=== PATIENT | female | born 1985 | race Caucasian/White ===

== ENCOUNTER → 2021-01-23 10:48 | Outpatient (CLI) | payer OTHER, SELFPAY ==
[2021-01-23 12:27] LABS: Final Volume 0.5 mL; Semen 30 min. Liquification? Yes
== END ==
PROVIDERS: PCP Family Medicine; Referring Provider Specialist; Visit Provider Specialist
DX: Z31.69 Encounter for other general counseling and advice on procreation (principal)
CPT/HCPCS: 58323

== ENCOUNTER → 2021-02-18 07:38 | Outpatient (CLI) | payer OTHER, SELFPAY ==
[2021-02-18 09:09] LABS: Semen 30 min. Liquification? Yes
[2021-02-18 09:10] LABS: Final Volume 0.5 mL; Initial Volume 2.5 mL
== END ==
PROVIDERS: PCP Family Medicine; Referring Provider Obstetrics & Gynecology; Visit Provider Obstetrics & Gynecology
DX: N97.0 Female infertility associated with anovulation (principal)
CPT/HCPCS: 58323

== ENCOUNTER → 2021-03-20 13:45 | Outpatient (CLI) | payer OTHER, SELFPAY | PROVIDERS: PCP Family Medicine; Visit Provider Physician Assistant | DX: J02.9 Acute pharyngitis, unspecified (principal) | CPT/HCPCS: 87070 ==

== ENCOUNTER → 2021-07-04 16:32 | Outpatient (CLI) | payer OTHER, SELFPAY ==
[2021-07-04 17:27] LABS: Add Manual Diff / Slide Review NO; Basophils Absolute Auto 100 /uL (0-100); Basophils Percent Auto 0.9 % (0-2); Eosinophils Absolute Auto 100 /uL (0-450); Eosinophils Percent Auto 0.8 % (2-4); Hematocrit 36.6 % (36-46); Hemoglobin 12.5 g/dL (12.0-16.0); Lymphocytes Absolute Auto 2300 /uL (1100-4500); Mean Corpuscular HGB Conc 34.3 % (30-36); Mean Corpuscular Hemoglobin 31.4 PG (26-34); Mean Corpuscular Volume 91.6 fL (80-100); Monocytes Absolute Auto 500 /uL (0-900); Monocytes Percent Auto 5.9 % (3-14); Neutrophils Absolute Auto 5600 /uL (1500-7000); Neutrophils Percent Auto 65.4 % (50-75); Platelet Count 252 X10^3/uL (150-400); Red Blood Cell Count 3.99 X10^6/uL (4.0-5.2); Red Cell Distribution Width 12.3 % (11.6-14.8); White Blood Cell Count 8.6 X10^3/uL (4.5-11.0)
[2021-07-04 17:41] LABS: Appearance Urine UA CLEAR; Bilirubin Urine UA NEGATIVE (NEGATIVE); Color Urine UA YELLOW; Glucose Urine UA NEGATIVE (Negative); Ketones Urine UA NEGATIVE (NEGATIVE); Leukocyte Esterase Urine UA TRACE (NEGATIVE); Nitrite Urine UA NEGATIVE (Negative); Occult Blood Urine UA NEGATIVE (Negative); Protein Urine UA NEGATIVE (Negative); Urobilinogen Urine UA 0.2 E.U./dL (0.2)
[2021-07-04 17:55] LABS: Bacteria Urine Few (2-10); Mucus Urine 1+ (Negative); RBC Urine None Seen (0-5/HPF); Squamous Epithelial Cell Urine 1-5 /HPF (0-5/HPF); WBC Urine 1-5/HPF (0-5/HPF)
[2021-07-05 05:17] LABS: RPR Screen Non Reactive (Non Reactive)
[2021-07-05 11:46] LABS: Varicella IgG Antibody 2496 index (Immune >165)
[2021-07-06 17:09] LABS: Hepatitis B Surface Antigen NEGATIVE s/c (NEGATIVE)
[2021-07-06 17:27] LABS: HIV 1 & 2 Ab/Ag 4th Gen Combo NEGATIVE (NEGATIVE); Hep C Virus Ab w/Reflex Quant NEGATIVE s/c (NEGATIVE)
== END ==
PROVIDERS: PCP Family Medicine; Referring Provider Obstetrics & Gynecology; Visit Provider Obstetrics & Gynecology
DX: O09.511 Supervision of elderly primigravida, first trimester (principal)
CPT/HCPCS: 36415; 80055; 81003; 81015; 81420; 86787; 86803; 86850; 86900; 86901; 87086; 87389

== ENCOUNTER → 2021-07-25 16:52 | Outpatient (CLI) | payer OTHER, SELFPAY ==
[2021-07-25 17:30] LABS: COVID19 -Nasal RAPID Negative (Negative)
== END ==
PROVIDERS: PCP Family Medicine; Referring Provider Obstetrics & Gynecology; Visit Provider Obstetrics & Gynecology
DX: Z01.812 Encounter for preprocedural laboratory examination (principal); Z20.822 Contact with and (suspected) exposure to COVID-19
CPT/HCPCS: 87635

== ENCOUNTER 2021-07-26 12:28 | Day surgery (SDC) | payer OTHER, SELFPAY ==
--- NOTE | 2021-07-26 | PATH_ITS ---
[facility] Accession Number: [id number] . 01 Material submitted: . product of conception - PRODUCTS OF CONCEPTION . 02 Diagnosis: Products of Conception: Products of conception identified. MRV 07/28/2021 1116 Local . 02 Electronically signed: . Diana Montez MD, Pathologist NPI- [id number] . 01 Gross description: . The specimen is received in formalin, labeled products of conception and consists multiple dow-pink fragments of soft tissue measuring 6.0 x 6.0 x 2.5 cm in aggregate. Chorionic villi are identified. No parts are identified. Orthopedic Nurse sections are submitted in cassettes A1-A2. ([id number]) /MRV 07/27/2021 1109 Local . 02 Pathologist provided ICD-10: O02.1 . 02 CPT . 439319 Performed at: 01 [facility] [address] [id number] MD Hugo Gutierrez MD Phone: [phone] Performed at: [facility] [address] [place], [place] [id number] MD Vero Brown MD Phone: [phone]
--- NOTE | 2021-07-26 09:45 | PM.HP.1 ---
History of Present Illness History of Present Illness Date Patient Seen: 07/26/21 Chief complaint: SUCTION D&C Narrative: Patient is a 35-year-old 3 para 1 with a missed at 8 weeks gestation Patient History Medical History (Updated 06/20/21 @ 08:39 by Candi Betancur MD) Abnormal Pap smear of cervix (~2005) Acne (~1996) Chicken pox (~1989) Frequent UTI (~2004) Infertility Scoliosis (~1983) Surgical History (Updated 06/16/21 @ 15:26 by Yessenia Saldivar RN) Anesthesia [place] teeth removed (~1999) Family & Social History Family History (Updated 06/16/21 @ 15:33 by Yessenia Saldivar RN) Father Diabetes mellitus Hypertension Hyperlipidemia Smoker Alcohol use Grandfather Parkinson's disease Grandmother Stroke Grandfather Stroke Hyperlipidemia Hypertension Grandmother Diabetes mellitus Congestive heart failure Mother S/P total hysterectomy Benign uterine neoplasm H/O bilateral hip replacements Pituitary tumor Social History: household members spouse,children lives independently Yes caregiver/support person No Tobacco & Substance use: Smoking Status Never smoker alcohol intake former Meds Home Medications and Allergies Home Medications Medication Instructions Recorded Confirmed Type prenat.vits,alison,[id number] 1 tab PO DAILY 12/22/20 07/25/21 History ondansetron 4 mg disintegrating 4 mg PO Q6H PRN #20 tab 05/20/21 07/25/21 Rx tablet Allergies Allergy/AdvReac Type Severity Reaction Status Date / Time Sulfa (Sulfonamide Allergy Mild Full Body Verified 07/26/21 12:42 Antibiotics) Rash [SULFA (SULFONAMIDE ANTIBIOTICS)] acetaminophen AdvReac Intermediate Makes her Verified 07/26/21 12:42 [From Tylenol-Codeine #3] overstimulated, very hyperactive. codeine AdvReac Intermediate Makes her Verified 07/26/21 12:42 [From Tylenol-Codeine #3] overstimulated, very hyperactive. Exam Narrative Exam Narrative: HEENT: No thyromegaly, no anterior cervical or supraclavicular lymphadenopathy. Lungs:Clear to auscultation bilaterally, no wheezes. Cardiovascular: Regular rate and rhythm, no murmurs, rubs, or gallops. Abdomen: No scars. No hepatosplenomegaly. No masses palpable. External genitalia: Normal Vagina: Normal Cervix: Normal, parous Bimanual exam: 8 Week size anteverted uterus. Mobile. Assessment & Plan Assessment & Plan narrative: Assessment: 35-year-old 3 para 1 with a missed at 8 weeks gestation Plan: Suction D&C The risks, benefits, and alternatives to the procedure were explained to the patient. The risks including bleeding, infection, and uterine perforation. She understands these risks and agrees to proceed. A full par Q was held and consent form was signed. COVID-19 COVID-19 status: Negative Result date/Date tested (Pos, Neg/Pending): 07/25/21 Time Spent With Patient Time with patient: less than 30 minutes Critical Care time: I spent a total of [] minutes of critical care time on this patient's care today; this time is exclusive of procedural time.
--- NOTE | 2021-07-26 09:47 | PM.PREOP ---
Pre-operative Note COVID-19 COVID-19 status: Negative Result date/Date tested (Pos, Neg/Pending): 07/25/21 Interval Note History & Physical reviewed/Exam performed by Physician: Yes Changes to H&P: No H&P completed within 30 days and has changed as indicated here:: 07/26/21
[2021-07-26 12:44] VITALS: BP 121/80; PULSE 100; RESP 16; TEMP 37.1; O2SAT 97; BMI 25.4
[2021-07-26] MEDS: LACTATED RINGERS 1,000 ML 100 ML IV (12:54)
--- NOTE | 2021-07-26 13:15 | SUR.OPER ---
Lithotomy on padded OR bed, head on pillow, arms secured on padded arm boards at <90 degrees abduction. Legs secured in padded yellow fins stirrups.
[2021-07-26] MEDS: ACETAMINOPHEN IV 1,000 MG/100 ML VIAL 400 MG IV (13:41)
[2021-07-26 14:01] VITALS: BP 101/58; PULSE 94; RESP 21; TEMP 37; O2SAT 98
[2021-07-26 14:06] VITALS: BP 114/69; PULSE 88; RESP 14; O2SAT 97
[2021-07-26 14:11] VITALS: BP 115/73; PULSE 94; RESP 14; O2SAT 98
[2021-07-26 14:22] VITALS: BP 98/67; PULSE 60; RESP 16; TEMP 36.3; O2SAT 100
--- NOTE | 2021-08-02 05:49 | PM.GYNOP.1 ---
Operative Date/Time/Diagnoses Date of procedure: 07/26/21 Time of procedure: 13:30 Pre-op diagnosis: Missed at 8 weeks Post-op diagnosis: same Procedure & Clinicians Procedure: Procedures Operation Date: 07/26/21 13:30 Actual Procedure Side Surgeon darlyn Betancur MD Indications: Missed at 8 weeks Surgeon: Candi Betancur Anesthesia Type: General (LMA) Operative Notes Findings: 8 week size anteverted uterus. Large amount of products conception Closure Type: not applicable Specimen(s): products of conception Estimated blood loss (mL): 100 Blood products transfused: none Procedure in detail: After informed consent was obtained, the patient was taken to the operating room where she was placed in the dorsal supine position. After adequate LMA general anesthesia was achieved, she was placed in the dorsal lithotomy position, and prepped and draped in the usual sterile fashion. A time-out was performed. A bivalve speculum was placed into the vagina and the anterior lip of the cervix was grasped with a single-tooth tenaculum. Cervical os was sequentially dilated to the # 9 Hegar dilator. The # 8 curved plastic curette passed easily into the endometrial cavity. Several passes with suction revealed a large amount of fluid and placenta. Several more passes with suction revealed tissue. The suction curette was removed. Gentle sharp curettage was performed yielding minimal amount of tissue. Several more passes with suction revealed blood only. Suction curette was removed from the uterus. Single-tooth tenaculum was removed from the anterior lip of the cervix. The bivalve speculum was removed from the vagina. Sponge, lap, and instrument counts were correct x2. The patient tolerated the procedure well, and was taken to PACU in stable condition. Complications: none Post-operative Condition: stable Disposition: PACU Plan for aftercare: Home after recovery
== END 2021-07-26 14:50 | disposition home or self-care (01) ==
PROVIDERS: PCP Family Medicine; Referring Provider Obstetrics & Gynecology; Visit Provider Obstetrics & Gynecology
PROC: (CPT 58120; principal; 2021-07-26 13:30)
DX: O02.1 Missed abortion (principal); Z3A.08 8 weeks gestation of pregnancy
CPT/HCPCS: 59820; J0131; J1100; J1885; J2250; J2405; J2704; J3010

== ENCOUNTER → 2022-02-07 14:11 | Outpatient (CLI) | payer OTHER, SELFPAY ==
[2022-02-07 15:40] LABS: HCG Quantitative /Beta subunit 385.2 mIU/mL
== END ==
PROVIDERS: PCP Family Medicine; Referring Provider Obstetrics & Gynecology; Visit Provider Obstetrics & Gynecology
DX: O20.9 Hemorrhage in early pregnancy, unspecified (principal)
CPT/HCPCS: 36415; 84702

== ENCOUNTER → 2022-02-28 10:42 | Outpatient (CLI) | payer OTHER, SELFPAY ==
[2022-02-28 12:15] LABS: Follicle Stimulating Hormone 5.44 mIU/mL
[2022-02-28 13:01] LABS: Free T4, Direct Thyroxine 0.91 ng/dL (0.78-2.19)
[2022-02-28 13:14] LABS: Thyroid Stimulating Hormone 1.79 uIU/mL (0.47-4.68)
[2022-03-02 13:37] LABS: ANA Screen, IFA Negative (.)
[2022-03-02 14:54] LABS: Dilute Russell Viper Venom 39.7 sec (0.0-47.0); Lupus Reflex Interpretation Comment: (.); PTT-LA 36.6 sec (0.0-51.9)
[2022-03-02 17:36] LABS: Cardiolipin Ab IgG <9 GPL U/mL (0-14); Cardiolipin Ab IgM 12 MPL U/mL (0-12)
[2022-03-04 09:49] LABS: Anti Mullerian Hormone 1.83 ng/mL (.)
[2022-03-05 22:47] LABS: B2-Glycoprotein I IgA AB < 9 (0-25); B2-Glycoprotein I IgG AB < 9 (0-20); B2-Glycoprotein I IgM AB < 9 (0-32); Cardiolipin Ab IgA < 9 APL U/mL (0-11); Cardiolipin Ab IgG < 9 GPL U/mL (0-14); Cardiolipin Ab IgM < 9 MPL U/mL (0-12); Lupus Reflex Interpretation Comment: (.); PTT-LA 38.8 sec (0.0-51.9)
== END ==
PROVIDERS: PCP Family Medicine; Referring Provider Obstetrics & Gynecology; Visit Provider Obstetrics & Gynecology
DX: N96 Recurrent pregnancy loss (principal)
CPT/HCPCS: 36415; 82397; 83001; 84439; 84443; 85598; 85613; 85732; 86038; 86146; 86147

== ENCOUNTER 2022-02-28 11:13 | Emergency (ER) | payer OTHER, SELFPAY ==
[2022-02-28 11:20] VITALS: BP 90/63; PULSE 71; RESP 16; TEMP 36.9; O2SAT 99; BMI 24.1
--- NOTE | 2022-02-28 12:09 | ED_ITS ---
HPI - Syncope <Alvaro Moya PA-C - Last Filed: 02/28/22 12:18> General Chief Complaint: Syncope Stated Complaint: Passed out during lab draw, low bp Time Seen by Provider: 02/28/22 12:07 History of Present Illness HPI narrative: The patient is a 36-year-old female who presents to the ED after passing out from a lab draw earlier. She states that while the mathematical technician was taking blood she became lightheaded and passed out and her blood pressure and pulse were f ound to be low and she took some time to recuperate. Presenting to the ED patient is asymptomatic having no complaints she denies any pain discomfort dizziness nausea vomiting diarrhea. She has had previous history of vasovagal syncope from previous doctor's visits. She denies any recent head trauma or any new medications. Related Data Home Medications Medication Instructions Recorded Confirmed prenat.vits,alison,[id number] 1 tab PO DAILY 12/22/20 07/25/21 Previous Rx's Medication Instructions Recorded tramadol 50 mg tablet 50 mg PO Q4H PRN pain #10 tabs 07/26/21 progesterone micronized 200 mg 200 mg PO DAILY #30 caps 12/20/21 capsule (Prometrium) Allergies Allergy/AdvReac Type Severity Reaction Status Date / Time Sulfa (Sulfonamide Allergy Mild Full Body Verified 07/26/21 12:42 Antibiotics) Rash [SULFA (SULFONAMIDE ANTIBIOTICS)] acetaminophen AdvReac Intermediate Makes her Verified 07/26/21 12:42 [From Tylenol-Codeine #3] overstimulated, very hyperactive. codeine AdvReac Intermediate Makes her Verified 07/26/21 12:42 [From Tylenol-Codeine #3] overstimulated, very hyperactive. Review of Systems <Alvaro Moya PA-C - Last Filed: 02/28/22 12:18> Review of Systems ROS Unobtainable: All systems reviewed & are unremarkable except as noted in HPI and below Constitutional Constitutional: Denies chills, Denies fatigue, Denies fever(s), Denies frequent falls, Denies lethargy and Denies weakness Eyes Eyes: Denies change in vision, Denies eye discharge, Denies irritation and Denies loss of vision ENT Ears, Nose, Mouth, and Throat: Denies change in voice, Denies dizziness, Denies neck pain, Denies sore throat and Denies throat swelling Cardiovascular Cardiovascular: Denies chest pain, Reports syncope, Denies irregular heart rhythm, Denies lightheadedness, Denies palpitations, Denies dyspnea, Denies dyspnea on exertion and Denies orthopnea Respiratory Respiratory: Denies cough, Denies dyspnea, Denies dyspnea on exertion and Denies wheezing Gastrointestinal Gastrointestinal: Denies abdominal pain, Denies change in bowel habits, Denies diarrhea, Denies nausea and Denies vomiting Genitourinary Genitourinary: Denies hematuria, Denies flank pain, Denies urinary incontinence and Denies urinary urgency Musculoskeletal Musculoskeletal: Denies back pain, Denies muscle weakness, Denies neck pain, Denies numbness and Denies tingling Integumentary/Breasts Skin/Breast: Denies pruritus, Denies erythema, Denies rash and Denies wounds Neurologic Neurologic: Denies behavioral changes, Denies confusion, Denies dizziness, Reports syncope, Denies frequent falls, Denies loss of vision, Denies numbness, Denies tingling and Denies weakness Psychiatric Psychiatric: Denies anxiety, Denies behavioral changes, Denies confusion, Denies depression, Denies homicidal ideation and Denies suicidal ideation Endocrine Endocrine: Denies fatigue, Denies flushing and Denies palpitations Hematologic/Lymphatic Hematologic/Lymphatic: Denies easy bruising Allergic/Immunologic Allergic/Immunologic: Denies urticaria, Denies throat swelling and Denies wheezing Patient History <Alvaro Moya PA-C - Last Filed: 02/28/22 12:18> Medical History Abnormal Pap smear of cervix (~2005) Acne (~1996) Chicken pox (~1989) Frequent UTI (~2004) Infertility Scoliosis (~1983) Surgical History Anesthesia [place] teeth removed (~1999) Family History Father Diabetes mellitus Hypertension Hyperlipidemia Smoker Alcohol use Grandfather Parkinson's disease Grandmother Stroke Grandfather Stroke Hyperlipidemia Hypertension Grandmother Diabetes mellitus Congestive heart failure Mother S/P total hysterectomy Benign uterine neoplasm H/O bilateral hip replacements Pituitary tumor Social History marital status: number of children: 1 household members: spouse and children lives independently: Yes caregiver/support person: No housing: house pets and animals: Yes (1 dog, 1 cat: aware. ) education level: master's degree (in [place]. ) occupational status: employed ([employer] [place] [employer]) current occupational exposures/hazards: Yes (A lot of students don't like to wear masks, but she is vaccinated. ) special jayshree needs: No seatbelt use: always do you feel safe at home: Yes Smoking Status: Never smoker second hand exposure: No alcohol intake: former substance use type: does not use during the past year weight has: remained stable well-balanced diet: daily or most days (Vegetarian: but does dairy. Few eggs, no fish. ) daily servings fruits/ve or more times/day (Lots & lots all day every day . ) caffeine: No (Current aversion. ) Type(s) of exercise: walking, weight lifting, yoga and normal ROM and activity frequency: daily duration: 45-60 minutes/day Smoking Status: Never smoker Substance Use Type: does not use Exam <Alvaro Moya PA-C - Last Filed: 02/28/22 12:18> Initial Vital Signs Initial Vital Signs: Vital Signs Temperature 98.4 F 02/28/22 11:20 Pulse Rate 71 02/28/22 11:20 Respiratory Rate 16 02/28/22 11:20 Blood Pressure 90/63 02/28/22 11:20 Pulse Oximetry 99 02/28/22 11:20 Oxygen Delivery Method 02/28/22 11:20 Const General: cooperative, healthy appearing, comfortable and well developed Nutritional Appearance: average body habitus [facility] Head: normal to inspection, normocephalic and atraumatic Ears: hearing grossly normal bilaterally, external ears normal and TM's normal bilaterally Nose: external nose normal and nares normal Face and sinus: normal facial exam Mouth: oral mucosae normal Teeth and gingiva: dentition normal and gingiva normal Neck Neck: normal visual inspection, full ROM and no meningeal signs Resp Effort & Inspection: normal respiratory effort and able to speak in complete sentences Auscultation: clear to auscultation bilaterally Cardio Palpation: normal PMI Rate: regular rate Rhythm: regular rhythm Heart Sounds: S1 normal and S2 normal GI Inspection: normal to inspection Palpation: soft and no hepatosplenomegaly Percussion: normal to percussion Auscultation: normal bowel sounds Neuro General: patient alert, patient awake, patient oriented x3, gait normal, tone normal, moves all extremities and CN's II-XI intact bilaterally <Aura Sherman MD - Last Filed: 02/28/22 17:15> Initial Vital Signs Initial Vital Signs: Vital Signs Temperature 98.4 F 02/28/22 11:20 Pulse Rate 71 02/28/22 11:20 Respiratory Rate 16 02/28/22 11:20 Blood Pressure 90/63 02/28/22 11:20 Pulse Oximetry 99 02/28/22 11:20 Oxygen Delivery Method 02/28/22 11:20 Course <Alvaro Moya PA-C - Last Filed: 02/28/22 12:18> Vital Signs Vital signs: Vital Signs - 8 hr 02/28/22 11:20 02/28/22 12:26 Temperature 98.4 F Pulse Rate 71 77 Respiratory Rate 16 16 Blood Pressure 90/63 101/60 Pulse Oximetry 99 99 Oxygen Delivery Method Room Air Room Air <Aura Sherman MD - Last Filed: 02/28/22 17:15> Vital Signs Vital signs: Vital Signs - 8 hr 02/28/22 11:20 02/28/22 12:26 Temperature 98.4 F Pulse Rate 71 77 Respiratory Rate 16 16 Blood Pressure 90/63 101/60 Pulse Oximetry 99 99 Oxygen Delivery Method Room Air Room Air MDM - Syncope <Alvaro Moya PA-C - Last Filed: 02/28/22 12:18> Differential Diagnosis Differential diagnosis: Likely vasovagal syncope Lab Data Labs: Point of Care Testing Glucose POC 90 MDM Narrative Medical decision making narrative: Patient was seen today for vasovagal syncope from a lab draw. Patient's symptoms have resolved she denies any complaints patient was evaluated and will be discharged home and told to follow-up with primary care physician. <Aura Sherman MD - Last Filed: 02/28/22 17:15> Lab Data Labs: Point of Care Testing Glucose POC 90 Discharge Plan Departure Patient Disposition: Home Clinical Impression: Vasovagal syncope Instructions: DI for Syncope in Adults (Fainting) Activity Restrictions/Additional Instructions: Were seen today for a syncopal episode after a lab draw. I would encourage you to hydrate today drink plenty of fluids and you can follow-up with your primary care for any further concerns or if your symptoms return or worsen you can return to the ED. Prescriptions: No Action progesterone micronized [Prometrium] 200 mg capsule 200 mg PO DAILY Qty: 30 2RF prenat.vits,alison,[id number] Tablet 1 tab PO DAILY tramadol 50 mg tablet 50 mg PO Q4H PRN (Reason: pain) Qty: 10 0RF Referrals: Chen Royal MD [Primary Care Provider] - Visit Report Forms: Patient Portal/API <Aura Sherman MD - Last Filed: 02/28/22 17:15> Cosign ED Attending Cosmariellaature Attestation: I was immediately available in the department for consultation throughout this patient's visit. I agree with documentation as above. Aura Sherman MD
--- NOTE | 2022-02-28 12:25 | PC.NURSE ---
pt feeling better, back to baseline, given some apple juice. BP 101/60. HR 75. PA in room to see.
[2022-02-28 12:26] VITALS: BP 101/60; PULSE 77; RESP 16; O2SAT 99
== END 2022-02-28 12:26 | disposition home or self-care (01) ==
PROVIDERS: Emergency Provider Physician Assistant; PCP Family Medicine
DX: R55 Syncope and collapse (principal); N96 Recurrent pregnancy loss
CPT/HCPCS: 36415; 82397; 83001; 84439; 84443; 85598; 85613; 85732; 86038; 86146; 86147; 99281

== ENCOUNTER → 2022-03-01 14:33 | Outpatient (CLI) | payer OTHER, SELFPAY ==
[2022-03-01 15:06] LABS: HEMOLYSIS < 15 (0-50); Iron 77 ug/dL (37-170)
[2022-03-01 15:16] LABS: Percent Iron Saturation 22 % (15-50); Total Iron Binding Capacity 343 ug/dL (265-497); Transferrin 259 mg/dL (206-381)
== END ==
PROVIDERS: PCP Family Medicine; Visit Provider Obstetrics & Gynecology
DX: N96 Recurrent pregnancy loss (principal)
CPT/HCPCS: 83540; 83550

== ENCOUNTER → 2022-11-15 07:16 | Outpatient (CLI) | payer OTHER, SELFPAY ==
[2022-11-15 08:18] LABS: HCG Quantitative /Beta subunit 7.6 mIU/mL
== END ==
PROVIDERS: PCP Family Medicine; Referring Provider Obstetrics & Gynecology; Visit Provider Obstetrics & Gynecology
DX: N96 Recurrent pregnancy loss (principal)
CPT/HCPCS: 36415; 84702

== ENCOUNTER → 2023-07-09 16:51 | Outpatient (CLI) | payer OTHER, SELFPAY ==
[2023-07-09 23:09] LABS: Urine N gonorrhoeae NOT DETECTED
[2023-07-09 23:36] LABS: Urine Chlamydia NOT DETECTED
== END ==
PROVIDERS: PCP Family Medicine; Visit Provider Obstetrics & Gynecology
DX: Z34.02 Encounter for supervision of normal first pregnancy, second trimester (principal); Z3A.01 Less than 8 weeks gestation of pregnancy
CPT/HCPCS: 87491; 87591

== ENCOUNTER → 2023-07-23 16:10 | Outpatient (CLI) | payer OTHER, SELFPAY ==
[2023-07-23 17:43] LABS: Add Manual Diff / Slide Review NO; Basophils Absolute Auto 100 /uL (0-100); Eosinophils Absolute Auto 100 /uL (0-450); Eosinophils Percent Auto 0.5 % (2-4); Hemoglobin 12.5 g/dL (12.0-16.0); Lymphocytes Absolute Auto 2300 /uL (1100-4500); Lymphocytes Percent Auto 20.2 % (25-40); Mean Corpuscular HGB Conc 33.7 % (30-36); Mean Corpuscular Hemoglobin 30.5 PG (26-34); Mean Corpuscular Volume 90.4 fL (80-100); Monocytes Absolute Auto 700 /uL (0-900); Neutrophils Absolute Auto 8200 /uL (1500-7000); Neutrophils Percent Auto 72.3 % (50-75); Platelet Count 269 X10^3/uL (150-400); Red Cell Distribution Width 12.3 % (11.6-14.8); White Blood Cell Count 11.3 X10^3/uL (4.5-11.0)
[2023-07-23 19:22] LABS: HIV 1 & 2 Ab/Ag 4th Gen Combo NEGATIVE (NEGATIVE); Hep C Virus Ab w/Reflex Quant NEGATIVE s/c (NEGATIVE); Hepatitis B Surface Antigen NEGATIVE s/c (NEGATIVE)
[2023-07-25 07:23] LABS: RPR Screen Non Reactive (Non Reactive)
[2023-07-25 09:00] LABS: Varicella IgG Antibody 1898 index (Immune >165)
== END ==
PROVIDERS: PCP Family Medicine; Referring Provider Obstetrics & Gynecology; Visit Provider Obstetrics & Gynecology
DX: O09.299 Supervision of pregnancy with other poor reproductive or obstetric history, unspecified trimester (principal)
CPT/HCPCS: 36415; 80055; 86787; 86803; 86850; 86900; 86901; 87389

== ENCOUNTER → 2023-09-28 09:15 | Outpatient (CLI) | payer OTHER, SELFPAY ==
[2023-09-28 09:48] LABS: Appearance Urine UA CLEAR; Bilirubin Urine UA NEGATIVE (NEGATIVE); Color Urine UA YELLOW; Glucose Urine UA NEGATIVE (Negative); Ketones Urine UA NEGATIVE (NEGATIVE); Leukocyte Esterase Urine UA TRACE (NEGATIVE); Nitrite Urine UA NEGATIVE (Negative); Occult Blood Urine UA NEGATIVE (Negative); Protein Urine UA NEGATIVE (Negative); Urobilinogen Urine UA 0.2 E.U./dL (0.2)
[2023-09-28 09:53] LABS: RBC Urine None Seen (0-5/HPF)
[2023-09-28 09:54] LABS: Bacteria Urine None Seen; Culture Indicated Urine Specimen Cultured; Squamous Epithelial Cell Urine 0-1 /HPF (0-5/HPF); WBC Urine 0-1/HPF (0-5/HPF)
== END ==
PROVIDERS: PCP Family Medicine; Referring Provider Specialist; Visit Provider Specialist
DX: R30.0 Dysuria (principal); L29.3 Anogenital pruritus, unspecified
CPT/HCPCS: 81001; 87086

== ENCOUNTER → 2023-10-02 09:13 | Outpatient (CLI) | payer OTHER, SELFPAY | PROVIDERS: PCP Family Medicine; Visit Provider Obstetrics & Gynecology | DX: R82.998 Other abnormal findings in urine (principal) | CPT/HCPCS: 87086 ==

== ENCOUNTER → 2023-10-08 12:20 | Outpatient (CLI) | payer OTHER, SELFPAY ==
--- NOTE | 2023-10-08 12:21 | DI.US.S_ITS ---
PROCEDURE: US OB >= 14 WEEKS FETUS INDICATIONS: ANATOMY SCAN OUTSIDE/PRIOR DATING DATA: Last menstrual period (LMP): 05/16/23. LMP-based estimated date of delivery (CAR): 02/20/24. First dating scan (date and location): Not available. Estimated date of delivery (CAR) from first dating scan: Not applicable. The calculations are made using the clinical CAR of 02/20/24. TECHNIQUE: Real-time scanning was performed of the fetus, with image documentation and biometric measurements. Endovaginal scanning: Performed for improved cervical detail. COMPARISON: [facility], , OB >= 14 WEEKS FETUS, 09/04/2023, 11:32. FINDINGS: General: A single living intrauterine gestation is present. Presentation: Variable Placenta: Placental position is posterior. With transvaginal imaging, distance between the internal os and placental edge is variable but remains within 1 cm, closest measurement being 0.5 cm, consistent with low lying placenta. No Vasa previa was visible. Amniotic fluid index: 13.4 cm, normal range is 5-24 cm. Single deepest vertical pocket is 3.8 cm. heart rate: 145 beats per minute. Maternal cervical canal: Closed and 5.3 cm long. Normal lower limit is 2.5 cm. biometrics: Biparietal diameter: 4.8 cm, 20 weeks 3 days Head circumference: 18.5 cm, 20 weeks 6 days Abdominal circumference: 16.6 cm, 21 weeks 4 days Femur length: 3.6 cm, 21 weeks 2 days Clinically estimated gestational age: 20 weeks 5 days Composite gestational age from present scan: 21 weeks 0 days Estimated weight and percentile: 415 g, 78th percentile Anatomic survey: Neuro: Ventricles are non-dilated at less than 10 mm. Cisterna magna is normal at 3-11 mm. Cerebellum is normal in size and morphology. Nuchal skin fold: Normal at less than 6 mm between 14-21 weeks gestational age. Face: Nose and lips, facial profile are normal. Spine: No evidence for spina bifida. Heart: 4-chambered heart is present, with normal ventricular outflow tracts. Diaphragm: Diaphragm is intact. Stomach: Left-sided stomach is present. Kidneys: No hydronephrosis. Normal is less than 5 mm in 2nd trimester, less than 7 mm in 3rd trimester. Cord: 3-vessel cord has orthotopic insertion. Bladder: Normal in size. Extremities: All 4 extremities identified. IMPRESSION: 1. Single living intrauterine with appropriate growth. Estimated weight at the 78th percentile. 2. Normal anatomy. 3. Posterior low lying placenta. Re-evaluation in 3rd trimester is recommended. We strive to produce accurate, complete, and clear reports of imaging services. To assist us in improving patient care, this report was composed using standard report templates and voice recognition software. Therefore, it may contain abnormal punctuation, insertions and/or omissions. Occasional wrong-word or sound-alike substitutions may occur. Though we review the report and make efforts to correct it, we do recommend that the report be read carefully in proper context to recognize any text inaccuracies. Dictated by: Destiny Meza M.D. on 10/08/2023 at 18:34 Approved by: Destiny Meza M.D. on 10/08/2023 at 18:42
== END ==
LOC: US 12:21
PROVIDERS: PCP Family Medicine; Referring Provider Specialist; Visit Provider Specialist
DX: O44.42 Low lying placenta NOS or without hemorrhage, second trimester (principal); Z3A.21 21 weeks gestation of pregnancy
CPT/HCPCS: 76811; 76817

== ENCOUNTER → 2023-11-12 11:27 | Outpatient (CLI) | payer OTHER, SELFPAY ==
[2023-11-12 13:41] LABS: Hematocrit 31.2 % (36-46); Hemoglobin 10.5 g/dL (12.0-16.0)
[2023-11-12 14:08] LABS: GTT (PREG) 1 Hour PP 50gm Dose 121 mg/dL (76-139)
== END ==
PROVIDERS: PCP Family Medicine; Referring Provider Obstetrics & Gynecology; Visit Provider Obstetrics & Gynecology
DX: Z34.82 Encounter for supervision of other normal pregnancy, second trimester (principal); Z3A.26 26 weeks gestation of pregnancy
CPT/HCPCS: 36415; 82950; 85014; 85018

== ENCOUNTER 2023-11-23 09:10 | Outpatient (CLI) | payer OTHER, SELFPAY ==
[2023-11-24 15:39] LABS: Candida species Positive (Negative); Gardnerella vaginalis Negative (Negative); Trichomoas vaginalis Negative (Negative)
== END 2023-11-23 09:55 | disposition home or self-care (01) ==
LOC: OB 11-27 09:47
PROVIDERS: PCP Family Medicine; Referring Provider Obstetrics & Gynecology; Visit Provider Obstetrics & Gynecology
DX: O60.02 Preterm labor without delivery, second trimester (principal); Z3A.27 27 weeks gestation of pregnancy
CPT/HCPCS: 59025; 84112; 87210; 87480; 87510; 87660; G0378; G0379

== ENCOUNTER → 2024-01-21 16:11 | Outpatient (CLI) | payer OTHER, SELFPAY ==
[2024-01-22 13:28] LABS: Strep Grp B PCR NEG for Grp B Strep
== END ==
PROVIDERS: PCP Family Medicine; Visit Provider Obstetrics & Gynecology
DX: Z34.83 Encounter for supervision of other normal pregnancy, third trimester (principal); Z3A.36 36 weeks gestation of pregnancy
CPT/HCPCS: 87653

== ENCOUNTER 2024-02-12 19:34 | Inpatient (IN) | payer OTHER, SELFPAY ==
[2024-02-12 19:54] VITALS: BP 111/75
[2024-02-12] MEDS: miSOPROStoL 25 MCG TABLET 50 MCG PO (20:58)
[2024-02-12 21:04] LABS: Add Manual Diff / Slide Review NO; Basophils Absolute Auto 100 /uL (0-100); Basophils Percent Auto 0.6 % (0-2); Eosinophils Absolute Auto 100 /uL (0-450); Eosinophils Percent Auto 0.8 % (2-4); Hematocrit 36.8 % (36-46); Hemoglobin 12.1 g/dL (12.0-16.0); Lymphocytes Absolute Auto 2500 /uL (1100-4500); Lymphocytes Percent Auto 26.1 % (25-40); Mean Corpuscular Hemoglobin 27.9 PG (26-34); Mean Corpuscular Volume 84.4 fL (80-100); Monocytes Absolute Auto 700 /uL (0-900); Monocytes Percent Auto 7.8 % (3-14); Neutrophils Absolute Auto 6200 /uL (1500-7000); Neutrophils Percent Auto 64.7 % (50-75); Platelet Count 149 X10^3/uL (150-400); Red Blood Cell Count 4.35 X10^6/uL (4.0-5.2); Red Cell Distribution Width 16.3 % (11.6-14.8); White Blood Cell Count 9.6 X10^3/uL (4.5-11.0)
[2024-02-12] MEDS: ZOLPIDEM 5 MG TABLET PO (22:14)
[2024-02-13] MEDS: miSOPROStoL 25 MCG TABLET 50 MCG PO (00:59)
[2024-02-13] MEDS: LACTATED RINGERS 1,000 ML 100 ML IV (08:40)
[2024-02-13] MEDS: OXYTOCIN PREMIX 30 UNIT/500 ML PLAST..BAG IV (08:40)
--- NOTE | 2024-02-13 10:08 | P.HPOB_ITS ---
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 Estimated Delivery Date Method Current WG Current Estimate 02/20/24 LMP (Certain) 39w 1d Other Estimates 02/18/24 Ultrasound #1 39w 3d Estimated Gestational Age (weeks): 39 : 6 Para: 1 care: good care, initiated at week # (7), number of visits (12) and pounds weight gain (45) Dating criteria OB: LMP confirmed by 1st trimester US Ultrasounds: normal 1st trimester US and normal mid trimester US Obstetrical complications: none Medical complications OB: none Indications Indication for induction OB: other (AMA, h/o RPL) Preadmission Labs Last OB Lab Results: 2 Blood Type A Positive 02/12/24 20:40 Antibody Screen Negative 02/12/24 20:40 Hematocrit 33.0 % (36-46) L 02/14/24 06:43 Hemoglobin 10.9 g/dL (12.0-16.0) L 02/14/24 06:43 Hepatitis B Surface Antigen Negative s/c (NEGATIVE) 07/23/23 16 :26 Hepatitis C Antibody Negative s/c (NEGATIVE) 07/23/23 16:26 Rubella Antibody 34.0 IU/mL (>15) 07/23/23 16:26 Varicella-Zoster IgG Antibody 1898 index (Immune >165) 07/23/23 16:26 Glucose 1 Hour 121 mg/dL (76-139) 11/12/23 12:18 Group B Streptococcus (PCR) Neg for grp b strep 01/21/24 16:11 -: Chlamydia screen: negative, Gonorrhea screen: negative and Urine: negative -: PAP smear: Normal Genetic Screens: Cell-free DNA: Normal (normal female) External Labs -: Urine: negative Prior (ies) Past Pregnancies Del. Date GA/Weeks Labor Lgth Wt Sex Route Outcome Anesthesia Place Delv Breastfeed Preg Comp Name 11/20/17 39.5 36 6 lb 11 oz Female vacuum forceps live - full term epidural IH w/ Dr. Royal 7 mos e xclusive pumping. none Michelle 12/11/20 4-6 spontaneous 07/11/21 8 spontaneous 02/07/22 6 spontaneous 11/16/22 4-6 spontaneous Delivery Date: 11/20/17 Last Updated by: Yessenia Saldivar R.N. OP, asynclitic. Pitocin augmentation. Vacuum & forceps. 2nd degree epis w/ extension to rectum. ?4th degree per patient? Still residual pain w sex in area. Delivery Date: 07/11/21 Last Updated by: Cindy Quintero RN missed AB, stopped ~8wk, D&C ~13 wk Evaluation Evaluation Baseline heart rate: 125 Variability: Moderate (11-25) monitor accelerations: Present Monitor Decelerations: Absent Contraction Frequency (minutes): 5 Uterine Contraction Intensity: Moderate Status: Category l Dilation (cm): 3 Effacement (%): 75 station: -2 Position of cervix: anterior Consistency: soft FOR[facility], [facility] Medical History (Updated 01/21/24 @ 16:12 by Candi Betancur MD) Infertility Acne (~1996) Scoliosis (~1983) Chicken pox (~1989) Abnormal Pap smear of cervix (~2005) Frequent UTI (~2004) Surgical History Anesthesia [place] teeth removed (~1999) Family History (Updated 06/18/23 @ 09:19 by Cindy Quintero RN) Father Diabetes mellitus Hypertension Hyperlipidemia Smoker Alcohol use Pancreatic cancer Grandfather Parkinson's disease Grandmother Stroke Grandfather Stroke Hyperlipidemia Hypertension Grandmother Diabetes mellitus Congestive heart failure Mother S/P total hysterectomy Benign uterine neoplasm H/O bilateral hip replacements Pituitary tumor Social History marital status: number of children: 1 household members: spouse and children lives independently: Yes caregiver/support person: No housing: house pets and animals: Yes (3 cats, managing litter boxes) education level: master's degree (in Fijian. ) occupational status: employed ([employer] [place] language) current occupational exposures/hazards: No special jayshree needs: No travel history: recent (domestic only) seatbelt use: always helmet use: Yes water heater temp set < 120 deg: Yes working smoke detector in home: Yes fire extinguisher in home: Yes carbon monox detector in home: Yes firearms in home: Yes firearms unloaded and locked: Yes do you feel safe at home: Yes Smoking Status: Never smoker second hand exposure: No alcohol intake: former (~2/week when not ) substance use type: does not use during the past year weight has: remained stable well-balanced diet: daily or most days (Vegetarian: but does dairy. Few eggs, no fish. ) daily servings fruits/ve or more times/day (Lots & lots all day every day. ) caffeine: Yes (single AM cup coffee) Type(s) of exercise: walking, swimming, weight lifting and yoga frequency: daily duration: 45-60 minutes/day Meds Home Medications and Allergies Home Medications Medication Instructions Recorded Confirmed Type prenat.vits,alison,[id number] 1 tab PO DAILY 12/22/20 02/13/24 History Allergies Allergy/AdvReac Type Severity Reaction Status Date / Time Sulfa (Sulfonamide Allergy Mild Full Body Verified 02/06/24 08:02 Antibiotics) Rash [SULFA (SULFONAMIDE ANTIBIOTICS)] codeine AdvReac Intermediate Makes her Verified 02/06/24 08:02 [From Tylenol-Codeine #3] overstimulated, very hyperactive. OB Exam Narrative Exam Narrative: Generally: Patient is sitting up in bed, no acute distress Lungs: Clear to auscultation bilaterally Cardiovascular: Regular rate and rhythm Fundal height: 39 cm Estimated weight: 7 lb Extremities: No edema Objective Labs 02/14/24 06:43 Labs: Laboratory Results - last 24 hr 02/12/24 20:40 WBC 9.6 RBC 4.35 Hgb 12.1 Hct 36.8 MCV 84.4 MCH 27.9 MCHC 33.0 RDW 16.3 H Plt Count 149 L Neut % (Auto) 64.7 Lymph % (Auto) 26.1 [place] % (Auto) 7.8 Eos % (Auto) 0.8 L Baso % (Auto) 0.6 Neut # (Auto) 6200 Lymph # (Auto) 2500 [place] # (Auto) 700 Eos # (Auto) 100 Baso # (Auto) 100 Blood Type A Positive Antibody Screen Negative Assessment and Plan Assessment and Plan Assessment and Plan narrative: Assessment: 38-year-old 6 para 1 at 39 weeks' gestation status post cervical ripening with misoprostol Favorable cervix Group B strep negative Plan: Pitocin augmentation Epidural prn Expectant management to Time Spent with Patient Total time spent with greater than 50% in coordination of care (as documented) at patient's floor/unit and/or counseling patient:: 15-24 minutes
--- NOTE | 2024-02-13 11:26 | PM.OBPNLAB ---
Date/Time Date Patient Seen: 02/13/24 Time Patient Seen: 11:26 Pain Control Pain control: tolerating well Pelvic Exam Dilation (cm): 4 Effacement (%): 80 station: 0 Amniotic membrane status: Bulging Contractions Pitocin rate (mU/min): 5 Contraction frequency (min): 4 Contraction duration (min): 1 Contraction pattern: Regular Contraction intensity: Strong/Firm Status status: Category l Heart Rate Baseline: 125 Monitor Accelerations: Present Monitor Decelerations: Absent Monitor Variability: Moderate Assessment and Plan Assessment: active labor Comments: AROM with clear fluid Epidural prn
--- NOTE | 2024-02-13 13:48 | PM.OBPNLAB ---
Date/Time Date Patient Seen: 02/13/24 Time Patient Seen: 13:05 Pain Control Pain control: tolerating well Comments: Leaking clear flui Pelvic Exam Effacement (%): 80 station: 0 Amniotic membrane status: Bulging Comments: Deferred VE Contractions Contractions on admission: none Monitor mode: External Pitocin rate (mU/min): 2 Contraction frequency (min): 4 Contraction duration (min): 1 Contraction pattern: Regular Contraction intensity: Moderate Status status: Category l Heart Rate Baseline: 125 Monitor Accelerations: Present Monitor Decelerations: Absent Monitor Variability: Moderate Assessment and Plan Assessment: active labor Comments: Epidural prn Expectant management to
--- NOTE | 2024-02-13 14:43 | P.PCN_ITS ---
Regional Block Pre-procedure PMH/ROS narrative: term , active labor PSH/Anesthesia history narrative: epidural x 1 Exam narrative: hx scoliosis (dx as child, no surgical interventions) ASA Class: II Labs: Hct 36.8 % (36-46) 02/12/24 20:40 Plt Count 149 X10^3/uL (150-400) L 02/12/24 20:40 Medications: Current Medications Generic Name Dose Route Start Last Admin Trade Name Freq PRN Reason Stop Dose Admin Calcium Carbonate 1,000 mg 02/12/24 19:36 Calcium Carbonate 500 Mg Tab PO Q4HR PRN Dyspepsia Carboprost Tromethamine 250 mcg 02/12/24 19:36 Carboprost 250 Mcg/Ml Ampul IM Q90M PRN Bleeding Fentanyl 50 mcg 02/12/24 19:36 Fentanyl 100 Mcg/2 Ml Inj IV Q1H PRN Pain, Moderate (4-6) Oxytocin/Lactated Ringer's 30 unit in 500 mls @ 2 mls/hr 02/12/24 19:45 0 02/13/24 08:40 Oxytocin Premix IV 2 milliunit/min TITRATE REJI 2 mls/hr Administration Protocol 2 MILLIUNIT/MIN Lactated Ringer's 1,000 mls @ 100 mls/hr 02/12/24 19:45 02/13/24 08:40 Lactated Ringers IV 100 mls/hr CONT REJI Administration Tranexamic Acid 1,000 mg/ 100 mls @ 200 mls/hr 02/12/24 19:36 Sodium Chloride IV NOW PRN Bleeding Oxytocin/Lactated Ringer's 30 unit in 500 mls @ 200 mls/hr 02/12/24 19:36 Oxytocin Premix IV CONT PRN Bleeding Protocol Lidocaine HCl 20 ml 02/12/24 19:36 Lidocaine 1% 20 Ml INJ INTRA-OP PRN Post Delivery Methylergonovine Maleate 0.2 mg 02/12/24 19:36 Methylergonovine 0.2 Mg/Ml Vial IM NOW PRN Bleeding Methylergonovine Maleate 0.2 mg 02/12/24 19:36 Methylergonovine 0.2 Mg Tablet PO Q6HR PRN Heavy Bleeding Misoprostol 50 mcg 02/12/24 19:45 Misoprostol 25 Mcg Tablet VAG Q4H REJI Misoprostol 800 mcg 02/12/24 19:36 Misoprostol 200 Mcg Tablet [place] NOW PRN Bleeding Misoprostol 400 mcg 02/12/24 19:36 Misoprostol 200 Mcg Tablet SL NOW PRN Bleeding Misoprostol 50 mcg 02/12/24 19:39 02/13/24 00:59 Misoprostol 25 Mcg Tablet PO 50 mcg QID PRN Administration Labor Induction Naloxone HCl 0.2 mg 02/12/24 19:36 Naloxone 0.4 Mg/Ml Vial IV Q2MIN PRN Opiate Reversal Ondansetron HCl 4 mg 02/12/24 19:36 Ondansetron 4 Mg/2 Ml Inj IV Q4HR PRN Nausea And Vomiting Oxytocin 10 unit 02/12/24 19:36 Oxytocin 10 Unit/Ml Vial IM NOW PRN Bleeding Sodium Chloride 10 ml 02/12/24 21:00 Sodium Chloride 0.9% Flush IV BID REJI Sodium Chloride 10 ml 02/12/24 19:36 Sodium Chloride 0.9% Flush IV PRN PRN Flush Zolpidem Tartrate 5 mg 02/12/24 19:39 02/12/24 22:14 Zolpidem 5 Mg Tablet PO 5 mg BEDTIME PRN Administration Sleep Allergies: Allergies Allergy/AdvReac Type Severity Reaction Status Date / Time Sulfa (Sulfonamide Allergy Mild Full Body Verified 02/06/24 08:02 Antibiotics) Rash [SULFA (SULFONAMIDE ANTIBIOTICS)] codeine AdvReac Intermediate Makes her Verified 02/06/24 08:02 [From Tylenol-Codeine #3] overstimulated, very hyperactive. Procedure Insertion date: 02/13/24 Insertion time: 14:16 Prep/Local: betadine x3 and 1% lidocaine Interspace: l3 l4 Patient position: sitting Needle: 17 gauge Tuohy Loss of resistance with: saline SANDRA at (cm): 6 Catheter placed at SKIN (cm): 14 Sensory level: t10 Initial Medications TEST DOSE time: 14:16 TEST DOSE: 1.5% lidocaine with epinephrine 1:200k (mL): 3 BOLUS DOSE time: 14:28 BOLUS DOSE (mL): 5 BOLUS DOSE med: 0.125% bupivacaine with fentanyl 10 mcg/mL Infusion INFUSION: 0.125% bupivacaine and with fentanyl 2 mcg/mL Initial rate (mL/hr): 10 Subsequent interventions: n/a Post-procedure Anesthesia date START: 02/13/24 Anesthesia time START: 14:00
[2024-02-13] MEDS: ONDANSETRON 4 MG/2 ML INJ IV (16:27)
--- NOTE | 2024-02-13 18:27 | PM.OBPRVD ---
Events: Labor Induction Labor & Delivery Delivery date: 02/13/24 Intrapartal Events: Deceleration (early and late) Cervical ripening method: per misoprostal protocol Induction method: per pitocin protocol Delivery augmentation: rupture of membranes Delivery monitor: external FHT and external uterine Route of delivery: Episiotomy description: None L&D Laceration Description: Vaginal - 1st Degree (vulvar skin tag removed with #15 blade, pressure held for hemostasis) Delivery repair: chromic Quantitative Blood Loss: 89 Anesthesia Type: Epidural Complications: None Narrative: Patient complete and pushed for 15 minutes. At 5:39 p.m., a live female delivered spontaneously in the SAMMY presentation, over an intact perineum. No nuchal cord. The remainder of the body delivered without difficulty and was placed on mom's abdomen. Pitocin was given in the IV fluids. After the cord stopped pulsing, the cord was double clamped and cut. Cord bloods were obtained. At 5:55 p.m., the placenta delivered intact with a three-vessel cord. The fundus was massaged to firm. The vagina/perineum were inspected and there was a first-degree vaginal laceration which was repaired with 2-0 chromic in the usual fashion. Hemostasis was achieved. Apgars 9 at 1 minute and 9 at 5 minutes. Weight 7 lb 2.5 oz. Epidural analgesia. . Mom and stable to recovery. [place] Baby 1: Infant gender: Female Presentation: vertex Position: Left Occiput Anterior Placenta delivery description: Spontaneous Cord Vessel Description: 3 Vessels and Clamped/Cut (after cord stopped pulsing) score (1 min): 9 score (5 min): 9 weight: 7 lb 2.5 oz Plan for aftercare: Routine care
--- NOTE | 2024-02-13 18:33 | PM.AN.REGBLK ---
Regional Block Pre-procedure Labs: Hct 36.8 % (36-46) 02/12/24 20:40 Plt Count 149 X10^3/uL (150-400) L 02/12/24 20:40 Medications: Current Medications Generic Name Dose Route Start Last Admin Trade Name Maribeth PRN Reason Stop Dose Admin Acetaminophen 650 mg 02/13/24 18:27 Acetaminophen 325 Mg Tablet PO Q6HR PRN Pain, Mild (1-3) Carboprost Tromethamine 250 mcg 02/13/24 18:27 Carboprost 250 Mcg/Ml Ampul IM Q90MIN PRN Bleeding Diphtheria/Tetanus/Acell Pertussis 0.5 ml 02/13/24 18:27 Tet,Diph,Pertuss(Acell),Vac/Pf 0.5 Ml Syringe IM 02/13/24 18:28 .ONCE ONE Docusate Sodium 100 mg 02/14/24 09:00 Docusate 100 Mg Capsule PO DAILY REJI Emollient Ointment 1 applic 02/13/24 18:27 Lanolin Oint 7 Gm TOP PRN PRN Tenderness Oxytocin/Lactated Ringer's 30 unit in 500 mls @ 200 mls/hr 02/13/24 18:27 Oxytocin Premix IV CONT PRN Bleeding Protocol Tranexamic Acid 1,000 mg/ 100 mls @ 200 mls/hr 02/13/24 18:27 Sodium Chloride IV NOW PRN Bleeding Ibuprofen 600 mg 02/13/24 18:27 Ibuprofen 600 Mg Tablet PO Q6HR PRN Pain, Mild (1-3) Measles/Mumps/Rubella Vaccine Live 0.5 ml 02/13/24 18:27 Measles,Mumps,Rubella Vacc/Pf 0.5 Ml Vial SUBCUT 02/13/24 18:28 .ONCE ONE Methylergonovine Maleate 0.2 mg 02/13/24 18:27 Methylergonovine 0.2 Mg/Ml Vial IM NOW PRN Bleeding Methylergonovine Maleate 0.2 mg 02/13/24 18:27 Methylergonovine 0.2 Mg Tablet PO Q6HR PRN Heavy bleeding Misoprostol 1,000 mcg 02/13/24 18:27 Misoprostol 200 Mcg Tablet MN NOW PRN Bleeding Misoprostol 400 mcg 02/13/24 18:27 Misoprostol 200 Mcg Tablet SL NOW PRN Bleeding Misoprostol 800 mcg 02/13/24 18:27 Misoprostol 200 Mcg Tablet MN NOW PRN Bleeding Naloxone HCl 0.2 mg 02/13/24 18:27 Naloxone 0.4 Mg/Ml Vial IV Q2MIN PRN Opiate Reversal Oxytocin 10 unit 02/13/24 18:27 Oxytocin 10 Unit/Ml Vial IM NOW PRN Bleeding Vit/Calcium/Iron/Folic Ac 1 tab 02/14/24 09:00 Vit,Calc/Iron/Folic 1 Tablet PO DAILY REJI Rho Immune Globulin 1,500 unit 02/13/24 18:27 Rho(D) Immune Globulin 1,500 Unit Syringe IM NOW PRN Mom Rh neg, Infant Rh pos Witch Cinthia/Glycerin 1 each 02/13/24 18:27 Witch Cinthia/Glycerin Pads TOP Q30M PRN Itching Allergies: Allergies Allergy/AdvReac Type Severity Reaction Status Date / Time Sulfa (Sulfonamide Allergy Mild Full Body Verified 02/06/24 08:02 Antibiotics) Rash [SULFA (SULFONAMIDE ANTIBIOTICS)] codeine AdvReac Intermediate Makes her Verified 02/06/24 08:02 [From Tylenol-Codeine #3] overstimulated, very hyperactive.
--- NOTE | 2024-02-13 18:34 | PM.AN.REGBLK ---
Regional Block Pre-procedure Labs: Hct 36.8 % (36-46) 02/12/24 20:40 Plt Count 149 X10^3/uL (150-400) L 02/12/24 20:40 Medications: Current Medications Generic Name Dose Route Start Last Admin Trade Name Maribeth PRN Reason Stop Dose Admin Acetaminophen 650 mg 02/13/24 18:27 Acetaminophen 325 Mg Tablet PO Q6HR PRN Pain, Mild (1-3) Carboprost Tromethamine 250 mcg 02/13/24 18:27 Carboprost 250 Mcg/Ml Ampul IM Q90MIN PRN Bleeding Docusate Sodium 100 mg 02/14/24 09:00 Docusate 100 Mg Capsule PO DAILY REJI Emollient Ointment 1 applic 02/13/24 18:27 Lanolin Oint 7 Gm TOP PRN PRN Tenderness Oxytocin/Lactated Ringer's 30 unit in 500 mls @ 200 mls/hr 02/13/24 18:27 Oxytocin Premix IV CONT PRN Bleeding Protocol Tranexamic Acid 1,000 mg/ 100 mls @ 200 mls/hr 02/13/24 18:27 Sodium Chloride IV NOW PRN Bleeding Ibuprofen 600 mg 02/13/24 18:27 Ibuprofen 600 Mg Tablet PO Q6HR PRN Pain, Mild (1-3) Methylergonovine Maleate 0.2 mg 02/13/24 18:27 Methylergonovine 0.2 Mg/Ml Vial IM NOW PRN Bleeding Methylergonovine Maleate 0.2 mg 02/13/24 18:27 Methylergonovine 0.2 Mg Tablet PO Q6HR PRN Heavy bleeding Misoprostol 1,000 mcg 02/13/24 18:27 Misoprostol 200 Mcg Tablet DC NOW PRN Bleeding Misoprostol 400 mcg 02/13/24 18:27 Misoprostol 200 Mcg Tablet SL NOW PRN Bleeding Misoprostol 800 mcg 02/13/24 18:27 Misoprostol 200 Mcg Tablet DC NOW PRN Bleeding Naloxone HCl 0.2 mg 02/13/24 18:27 Naloxone 0.4 Mg/Ml Vial IV Q2MIN PRN Opiate Reversal Oxytocin 10 unit 02/13/24 18:27 Oxytocin 10 Unit/Ml Vial IM NOW PRN Bleeding Vit/Calcium/Iron/Folic Ac 1 tab 02/14/24 09:00 Vit,Calc/Iron/Folic 1 Tablet PO DAILY [facility] Rho Immune Globulin 1,500 unit 02/13/24 18:27 Rho(D) Immune Globulin 1,500 Unit Syringe IM NOW PRN Mom Rh neg, Rh pos Witch Cinthia/Glycerin 1 each 02/13/24 18:27 Witch Cinthia/Glycerin Pads TOP Q30M PRN Itching Allergies: Allergies Allergy/AdvReac Type Severity Reaction Status Date / Time Sulfa (Sulfonamide Allergy Mild Full Body Verified 02/06/24 08:02 Antibiotics) Rash [SULFA (SULFONAMIDE ANTIBIOTICS)] codeine AdvReac Intermediate Makes her Verified 02/06/24 08:02 [From Tylenol-Codeine #3] overstimulated, very hyperactive. Post-procedure Anesthesia date END: 02/13/24 Anesthesia time END: 17:39
[2024-02-13] MEDS: IBUPROFEN 600 MG TABLET PO (20:00)
[2024-02-13] MEDS: ACETAMINOPHEN 325 MG TABLET 650 MG PO (20:00)
[2024-02-14] MEDS: IBUPROFEN 600 MG TABLET PO (02:24)
[2024-02-14] MEDS: ACETAMINOPHEN 325 MG TABLET 650 MG PO (02:24)
[2024-02-14 06:50] LABS: Hemoglobin 10.9 g/dL (12.0-16.0)
[2024-02-14] MEDS: DOCUSATE 100 MG CAPSULE PO (08:50)
--- NOTE | 2024-02-14 18:37 | PM.OBDS.1 ---
Discharge Providers Provider Date of admission: 02/12/24 19:34 Discharge Date: 02/14/24 Primary care physician: Chen Royal MD Consults: 02/12/24 19:36 Consult to Anesthesiology Urgent Comment: Consulting Provider: Anesthesiologist Reason for consultation: Epidural Has provider been notified: No Discharge provider: Candi Betancur MD Summary Hospital Course Date Patient Seen: 02/14/24 Time Patient Seen: 12:30 Diagnoses: Thirty-nine weeks' gestation Cervical ripening with misoprostol Pitocin induction of labor Artificial rupture of membranes Spontaneous vaginal delivery First-degree laceration Hospital Course: Patient is a 38-year-old 6 para 2 who presented on February 12, 2024 for misoprostol cervical ripening. She received 2 doses overnight. On the morning of February 13, 2024 she had a favorable cervix and was started on Pitocin. She had an artificial rupture of membranes with clear amniotic fluid. She received an epidural for pain management. She progressed to complete dilation and had a spontaneous vaginal delivery without complication. She had a first-degree vaginal laceration which was repaired. Her course was unremarkable and she was discharged home on day # 1. Peripartum Data Delivery Method: Natural Vaginal Laceration Description: Vaginal - 1st Degree Episiotomy description: None Procedures: Misoprostol cervical ripening Pitocin induction of labor Artificial rupture of membranes Epidural analgesia Spontaneous vaginal delivery First-degree vaginal laceration repair complications: none 1: Gender: Female Disposition of : home Status at Discharge Cognitive/behavioral status at discharge: oriented Functional status at discharge: independent ambulation Overall status at discharge: patient is progressing back to baseline Time Spent with Patient Time attestation: Total time spent providing and/or coordinating discharge services: Time spent: Less than 30 minutes Objective Labs 02/14/24 06:43 Labs: Laboratory Results - last 24 hr 02/14/24 06:43 Hgb 10.9 L Hct 33.0 L Exam Narrative Exam Narrative: Generally: Patient is sitting in chair, no acute distress Fundus: Firm at U -1 Extremities: Trace edema, negative Homans Discharge Plan Discharge Plan Patient Disposition: Home Provider Discharge Comment: Call with fever, chills, or bleeding vaginally more than a pad in an hour Ibuprofen 600 mg every 6 hours as needed for cramping Tylenol 650 mg every 6 hours as needed Continue vitamins Push oral fluids Discharge orders & Medications Prescriptions: Continued prenat.vits,alison,[id number] Tablet 1 tab PO DAILY Follow up/Referrals: Candi Betancur MD [Physician] - (Post 6 week follow up appt with Dr. Calvin on 03/26/2024 @ 1015am check in for 1030am appt.) Diet/Activity/Treatments Diet: Regular Activity: Nothing in the vagina for 6 weeks Skin/Wound/Dressing Care Report to your healthcare provider any signs of infection, such as:: chills, fever, increased pain and unusual drainage Visit Report/Discharge Packet Instructions: DI for Labor and Delivery, Vaginal Stand Alone Forms: Patient Portal/API, Stroke Signs & Symptoms Discharge Data Primary Care Provider: Chen Royal
== END 2024-02-14 15:18 | disposition home or self-care (01) | DRG 806 ==
PROVIDERS: Admitting Provider Obstetrics & Gynecology; PCP Family Medicine; Referring Provider Obstetrics & Gynecology; Visit Provider Obstetrics & Gynecology
DX: O76 Abnormality in fetal heart rate and rhythm complicating labor and delivery (principal); O71.4 Obstetric high vaginal laceration alone; Z37.0 Single live birth; Z3A.39 39 weeks gestation of pregnancy; Z67.10 Type A blood, Rh positive
CPT/HCPCS: 36415; 59050; 59200; 59400; 85014; 85018; 85025; 86850; 86900; 86901; G0379; J2405; J2590

== ENCOUNTER → 2025-05-22 11:31 | Outpatient (CLI) | payer OTHER, SELFPAY ==
--- NOTE | 2025-05-22 | DI.RAD.S_ITS ---
PROCEDURE: XR HIP W PEL IF DONE LT 2V INDICATIONS: Pain in left hip TECHNIQUE: AP pelvis with lateral view(s) of the left hip(s). COMPARISON: None. FINDINGS: Bones: No fractures or dislocations. Pelvic ring appears intact. No suspicious bony lesions. Soft tissues: The visualized bowel gas pattern is normal. No suspicious soft tissue calcifications. IMPRESSION: No acute bony abnormality. Dictated by: Sergio Giordano M.D. on 05/25/2025 at 6:19 Approved by: Sergio Giordano M.D. on 05/25/2025 at 6:19
== END ==
PROVIDERS: PCP Family Medicine; Referring Provider Family Medicine; Visit Provider Family Medicine
DX: M25.552 Pain in left hip (principal)
CPT/HCPCS: 73502